=== PATIENT | male | born 1990 ===

== ENCOUNTER 2018-02-20 11:51 | Emergency (ER) | payer OTHER ==
--- NOTE | 2018-02-20 12:26 | UC ---
Hand/Wrist HPI - HPI Summary HPI Summary: 27 y/o [place] speaking male presents to the urgent care accompany by his boss c/o RT thumb severe pain s/p laceration w/ nail avulsion after a cow kick his thumb about 1 hr ago at work. Pt report she was trying to give the cow and inj when she kick him. Bleeding stopped w/ pressure. Pain is 9/10 w/ numbness on the tip of his Rt thumb. pt can move thumb w/o any difficulty. Pt is UTD w/ Tetanus vaccine given in 2017. Pt has been healthy. Pt denies previous injury to Rt hand. fever, SOB, chest pain, abdominal pain, BAUMAN, N/V/D. - History Of Current Complaint Chief Complaint: UCUpperExtremity Stated Complaint: THUMB NAIL INJURY Time Seen by Provider: 02/20/18 12:17 Hx Obtained From: Patient Onset/Duration: Sudden Onset, Lasting Hours - 1 hr, Still Present Severity Initially: Severe Severity Currently: Severe Pain Intensity: 9 Pain Scale Used: 0-10 Numeric Character Of Pain: Sharp Aggravating Factor(s): Movement Alleviating Factor(s): Rest Associated Signs And Symptoms: Positive: Swelling, Numbness/Tingling, Other - laceration and avulsion of the nail - Risk Factors Compartment Syndrome Risk Factors: Pain - Allergies/Home Medications Allergies/Adverse Reactions: Allergies Allergy/AdvReac Type Severity Reaction Status Date / Time No Known Allergies Allergy Verified 02/20/18 12:14 PMH/Surg Hx/FS Hx/Imm Hx Previously Healthy: Yes - Pt denies PMHX - Surgical History Surgical History: None Surgery Procedure, Year, and Place: let arm surgery - Family History Family History: dyslipidemia - Social History Occupation: Employed Full-time Lives: Alone Alcohol Use: None Substance Use Type: None Smoking Status (MU): Never Smoked Tobacco - Immunization History Hx Tetanus, Diphtheria Vaccination: Yes - 2017 Review of Systems All Other Systems Reviewed And Are Negative: Yes Constitutional: Positive: Negative Skin: Positive: Other - laceration of Rt thumb w/ nail avulsion s/p a cow kick him about 1 hr ago Eyes: Positive: Negative ENT: Positive: Negative Respiratory: Positive: Negative Cardiovascular: Positive: Negative Gastrointestinal: Positive: Negative Genitourinary: Positive: Negative Motor: Positive: Negative Neurovascular: Positive: Negative Musculoskeletal: Positive: Decreased ROM - Rt thumb, Other: - RT thumb pain s/p crushed injury by a cow Neurological: Positive: Negative Psychological: Positive: Negative Is Patient Immunocompromised?: No Physical Exam - Summary Physical Exam Summary: Vital Signs Reviewed: Yes General: well developed, well nourished male sitting in the examining table w/ o any apparent distress Eye Exam: Normal Eyes: Positive: Conjunctiva Clear - PERRLA, EOMI, fundi grossly normal ENT: Positive: Normal ENT inspection, Hearing grossly normal, Pharynx normal, TMs normal Neck: Positive: Supple, Nontender, No Lymphadenopathy Respiratory: Positive: Chest non-tender, Lungs clear, Normal breath sounds, No respiratory distress Cardiovascular: Positive: RRR, No Murmur, Pulses Normal, Brisk Capillary Refill Abdomen Description: Positive: Nontender, No Organomegaly, Soft. Negative: CVA Tenderness (R), CVA Tenderness (L) Bowel Sounds: Positive: Present Musculoskeletal: Positive: Strength Intact, ROM Intact, No Edema Neurological: Positive: Alert, Muscle Tone Normal Psychological Exam: Normal Skin: Positive: RT thumb w/ a laceration on lateral aspect on nail and nail bed about 3.0cm in size w/ a partially nail avulsion, and complete nail bed avulsion, active bleeding, no foreign body observed. tenderness to palpation, soft tissue swelling, ecchymosis and bruising around the tip of thumb. FROM of RT thumb and Rt hand, sensation intact, capillary refill brisk, and pulses WNL. Triage Information Reviewed: Yes Vital Signs: Initial Vital Signs Temp 98.0 F 02/20/18 12:05 Pulse 74 02/20/18 12:05 Resp 18 02/20/18 12:05 BP 135/90 02/20/18 12:05 Pulse Ox 100 02/20/18 12:05 Hand/Wrist Course/Dx - Course Course Of Treatment: 27 y/o [place] speaking male presents to the urgent care accompany by his boss c/o RT thumb severe pain s/p laceration w/ nail avulsion after a cow kick his thumb about 1 hr ago at work. Pt report she was trying to give the cow and inj when she kick him. Bleeding stopped w/ pressure. Pain is 9/ 10 w/ numbness on the tip of his Rt thumb. pt can move thumb w/o any difficulty. Pt is UTD w/ Tetanus vaccine given in 2017. Pt has been healthy. Pt denies previous injury to Rt hand. fever, SOB, chest pain, abdominal pain, BAUMAN, N /V/D. Pt w/ a laceration on the lateral aspect of the distal RT 1st phalax w/ a partially avulsed nail and complete nailbed avulsion, about 3cm in size, ROM of Rt thumb and neurovascular intact on examination. Pt w/ possible open fracture. RT thumb X-ray ordered, Impression:soft tissue injury w/ a common tuft fracture. I discussed Pt's symptosm w/ DR Denton and he recommende laceration repair and approximation nailbed and nail w/ sutures. I explained all results and procedure w/ pt in mauritian. Pt given a Toradol IM inj for pain. Pt tolerated well IM inj. LACERATION PROCEDURE NOTE: . Copious irrigation was done with saline and the wound explored. There was no FB or deep structure injury noted. Timeout performed with the nurse demetris. The procedure was explained and consent obtained. Thumb cleaned 3X w/ iodine swabs. Digital block performed w/ Lidocaine 1%. PtRt thumb neurovascular intact after digital block. Good anesthesia obtained. Sterile drape and prep were done There were 11 sutures placed with 4.0 Nylon, 3 of the sutures were placed through nail to hold it in place. The length of the wound after closure was 3.0 cm. No debridement done. Wound was covered with bacitracin and sterile non adherent dressing. The Pt tolerated the procedure well without adverse effects. Pt neurovascular intact. Pt is UTD w/ Tetanus vaccine in 2017. Pt given first dose of Keflex PO at the clinic. Pt's thumb was immobilizes w/ a finger splint by the nurse. Pt Rx keflex PO, Ibuprofen PO and Bacitracin oint as directed below. Pt Advised to start ibuprofen tomorrow since Toradol IM inj given today. to take Tylenol today if pain develops later. Pt strongly advised to f/u w/ Orthopdic DR Cope tomorrow for further management. Also advised if severe pain develops or fever despite antibiotic to go immediately to the ER for further management. Pt explained D/c instructions in [place]. Pt and boss understood and agreed w/ plan of care. Pt left the clinic ambulating, hemodynamically stable ,A&OX3, feelimg better. - Differential Dx/Diagnosis Differential Diagnosis/HQI/PQRI: Contusion, Fracture - opne or closed fracture, nail avulsion, Puncture Wound, Tendonitis, Other - crushed injury, nail avulsion , Provider Diagnosis: Open fracture of tuft of distal phalanx of right thumb, Laceration of thumb with damage to nail, Elevated BP without diagnosis of hypertension - Physician Notifications Discussed Patient Care With: Nelson Denton - DR denton agreed w/ Pt's plan of care Discharge - Sign-Out/Discharge Documenting (check all that apply): Patient Departure - d/c home All imaging exams completed and their final reports reviewed: Yes - Discharge Plan Condition: Stable Disposition: HOME Prescriptions: Bacitracin OINTMENT* 1 applic TOPICAL BID #1 tube Cephalexin CAP* [Keflex CAP*] 500 mg PO QID #27 cap Ibuprofen TAB* [Motrin TAB* 800 MG] 800 mg PO Q6H #30 tab Patient Education Materials: Care For Your Stitches (ED), Laceration (ED), Finger Fracture (ED) Referrals: [facility] [place] [facility] REFERRAL [Outside] - 2 Days Shaila Cope MD [Medical Doctor] - 1 Day Additional Instructions: 1- Porfavor tome el antibiotico Keflex cada 6 hrs por 7 restrepo. la primera dosis se le tony en la clinica. La proxima dosis es en 6hrs 2- Mantega la laceracion limpia y seca, Evite mold mover el dedo. Applique el Bacitraicin oint 2/bharath 3- Por favor danilo un appt con el Orhtopedista DRa Cope para evaluacion and tratamiento de rosas fracture en la parte distal del dedo 4- [place] apartir de manana Ibuprofeno 800mg cada 6-8hrs despues de comidas para aliviar el dolor y la hinchazon. 5- Si desarrolla demasiado dolor y le da febre aunque verito tomando antibioticos por favor vaya inmediatamente a la Emergencia para q lo evaluen y traten. 6- rosas pression esta un poco criselda, por favor baje a la haydee y monitoree rosas presion y si continua elevada porfavor hilda a rosas doctor 1-Please take full course of antibiotic to avoid resistance. first dose given today at the clinic. Second dose is in 6 hrs 2- Keep wound clean and dry and avoid excessive movement w/ your finger. keep immobilized w/ the splint. Apply Bacitracin oint as directed 3-Take Ibuprofen or Tylenol PO q6-8hrs prn for pain or swelling. Starting tomorrow sicne you were given Toradol Inj today 4- If you develop fever or redness around your finger despite the antibiotic please go to the ER immediately or return to the Urgent care. 5- Your BP is elevated today. please decrease salt in your diet, monitor BP and if it continues to be elevated please f/u with your PCP for further management - Billing Disposition and Condition Condition: STABLE Disposition: Home
[2018-02-20] MEDS ORDERED: Ketorolac INJ* 30 MG/ML 1 ML VIAL IM ONE (12:28)
[2018-02-20] MEDS ORDERED: Lidocaine 1%* 5 ML VIAL INJ ONE (12:49)
[2018-02-20] MEDS ORDERED: Cephalexin CAP* 500 MG PO ONE (14:19)
== END 2018-02-20 14:40 | disposition home or self-care (01) ==
LOC: UCEAST 11:51
DX: S62.521B Displaced fracture of distal phalanx of right thumb, initial encounter for open fracture (principal); W55.22XA Struck by cow, initial encounter; Y92.79 Other farm location as the place of occurrence of the external cause; Y99.0 Civilian activity done for income or pay; R03.0 Elevated blood-pressure reading, without diagnosis of hypertension
CPT/HCPCS: 12002; 99212; A9270-GY; G0463; J1885